=== PATIENT | female | born 1965 | race Caucasian/White ===

== ENCOUNTER → 2017-12-01 | Day surgery (SDC) | payer OTHER ==
[~2017-12-01] VITALS: Ht 160 cm; Wt 63.5 kg
[~2017-12-01] MED LIST: ACETAZOLAMIDE500 M2 PO; ARMOUR THYROID60 M1 PO; ASPIRIN81 M4 PO; CALTRATE 600 +1 EAC1 PO; CO Q-10100 MG PO; COSOPT EYE DROP10 ML OS; FIORINAL 50-321 EACH PO; LATANOPROST2.5 ML OS; MULTIVITAMINS1 EAC9 PO; PHENOBARBITAL PO; PHENOBARBITAL97.2 M1 PO; VITAMIN D2000 UNIT PO
--- NOTE | 2017-12-01 12:05 | Operative Report ---
Operative/Inv Procedure Report Surgery Date: 12/01/17 Name of Procedure: Trabeculectomy with mitomycin-C left eye Pre-Operative Diagnosis: Uncontrolled glaucoma left eye 20/70 vision Post-Operative Diagnosis: Same Estimated Blood Loss: none Surgeon/Firewood Cutter: Venu BOLANOS,Mani Arriaga Anesthesia: local monitored anesthesi Complications: None Operative/Procedure Note Note: The patient had uncontrolled intraocular pressure and was on maximal medical therapy. She was consented for trabeculectomy of the left eye with mitomycin-C. Mitomycin was used in this case because the patient has had previous intraocular surgery. The patient was brought to the operating room and standard monitoring equipment was attached. The patient was prepped and draped in the usual fashion for sterile intraocular surgery. A lid speculum was used to retract the lids. A small temporal incision was made with an I- knife and non- preserved lidocaine was introduced into the anterior chamber to provide anesthesia. The patient was asked to look down. Conjunctiva and Tenon's tissue was opened at the 12 o'clock position using non-toothed forceps and a Vannas scissors. A fornix based conjunctival peritomy was continued using Junior's scissors. Additional anesthesia was achieved by infusing a 50:50 mixture of 2 percent lidocaine and 0.75 Marcaine which had been mixed previously underneath the conjunctiva and tenon's tissue. The sclera at the limbus was cleaned off using a 69 blade and a [place] sponge. A partial thickness groove was made tangential to the limbus approximately 1.5 mm back using the same 69 blade. A crescent knife was used to tunnel from this incision into clear cornea and then the anterior chamber was entered with a 2.4 mm keratome. Several punches of the posterior wound lip were taken with a Merissa Descemet punch. Due to the fact of the patient having only iris remnants in iridectomy was omitted. The trabeculectomy flap was sutured using 2 interrupted 10-0 nylon sutures whose knots were trimmed and buried. The flap was assessed for flow but no additional sutures were placed. Mitomycin-C 0.4 mg/mL was placed on several previously cut [place] sponges and held underneath the tenons fascia for approximately 2 minutes keeping the edge of the conjunctival surface away from the mitomycin. The instruments used to handle the mitomycin were removed from the field and the area copiously irrigated with balanced salt solution. The conjunctiva was reapproximated to the eye wall using multiple interrupted 10-0 nylon sutures whose knots were trimmed and rotated underneath the tissue. The eye was pressurized to an adequate tone by introducing balanced salt solution into the anterior chamber. This caused the bleb to elevate. The bleb area was assessed for leaks and since there were none the the lid speculum was removed. The eye was patched over antibiotic, steroid and a combination of antibiotic and steroid ointment. The eye was then shielded. Patient was removed from the operating room in stable condition and brought to same-day surgery having tolerated the procedure well.
== END ==
LOC: STS 01:15
DX: H40.1120 Primary open-angle glaucoma, left eye, stage unspecified (principal); E03.9 Hypothyroidism, unspecified; G40.909 Epilepsy, unspecified, not intractable, without status epilepticus
CPT/HCPCS: J2250; J7315